=== PATIENT | male | born 1990 | race Caucasian/White ===

== ENCOUNTER 2019-03-04 11:17 | Emergency (ER) | payer MEDICAID ==
[2019-03-04] MEDS: FAMOTIDINE 20 MG TAB PO (11:50)
[2019-03-04] MEDS: ACETAMINOPHEN 500 MG TAB PO (11:50)
== END 2019-03-04 13:23 | disposition home or self-care (01) ==
LOC: FTE 11:17
DX: J06.9 Acute upper respiratory infection, unspecified (principal)
CPT/HCPCS: 71045; 82962; 99283-25